=== PATIENT | male | born 1995 ===

== ENCOUNTER 2021-10-02 19:20 | Emergency (ER) | payer MEDICAID ==
[~2021-10-02] VITALS: Ht 185.4 cm; Wt 111.0 kg
[2021-10-02] MEDS ORDERED: AZIT-103 PO (20:25)
[2021-10-02 20:48] VITALS: BP 113/68
== END 2021-10-02 20:49 | disposition home or self-care (01) ==
LOC: ER 19:21
DX: U07.1 COVID-19 (principal); J18.9 Pneumonia, unspecified organism; R05.9 Cough, unspecified; R06.02 Shortness of breath; J45.909 Unspecified asthma, uncomplicated; Z79.2 Long term (current) use of antibiotics
CPT/HCPCS: 71045; 87635; 99284; C9803